=== PATIENT | female | born 1955 | race Caucasian/White ===

== ENCOUNTER 2023-08-23 12:25 | Emergency (ER) | payer MEDICARE ==
[2023-08-23 12:51] VITALS: TEMP 98.4
--- NOTE | 2023-08-23 12:52 | ERPHSYRPT ---
- History of Present Illness Time Seen by Provider: 08/23/23 12:37 Source: patient Exam Limitations: no limitations Physician History: Pt states she has had bilateral lower leg pain for the past 5 hours; denies chest pain, shortness of air, fever, headache, abdominal pain. Allergies/Adverse Reactions: Sulfa (Sulfonamide Antibiotics) Allergy (Verified 08/23/23 13:10) Home Medications: Earle/D3/Mag11/Zinc/Squeak [employer]r/Omid/Bor [Caltrate 600+D Plus Tablet] 1 tab PO DAILY 08/23/23 [History] Cefdinir 300 mg PO BID 08/23/23 [History] Doxycycline Hyclate 100 mg [Vibramycin 100 MG] 100 mg PO BID 08/23/23 [History] Gabapentin [Neurontin ] 300 mg PO TID PRN 08/23/23 [History] Multivit-Min/Iron/FA/Vit K/Lut [Centrum Women 50 Plus Minis Tb] 1 tab PO DAILY 08/23/23 [History] Tramadol HCl 50 mg [Ultram 50 mg] 25 mg PO Q8H PRN PRN 08/23/23 [History] - Review of Systems Constitutional: No Fever Respiratory: No Dyspnea Cardiac: No Chest Pain Abdominal/Gastrointestinal: No Abdominal Pain, No Vomiting, No Diarrhea Musculoskeletal: Other (bilateral lower leg pain for the past 5 hours) Neurological: No Headache - Nursing Vital Signs Nursing Vital Signs: Initial Vital Signs Pulse Rate 96 H 08/23/23 12:30 Respiratory Rate 19 08/23/23 12:30 Blood Pressure 126/69 08/23/23 12:30 Pain Scale Pain Intensity 4 - Physical Exam General Appearance: alert Eyes, Ears, Nose, Throat Exam: pharynx normal, moist mucous membranes Neck Exam: normal inspection Cardiovascular/Respiratory Exam: normal breath sounds, heart sounds normal Gastrointestinal/Abdominal Exam: soft (B.S. normal) Legs Exam: bilateral leg: soft tissue tenderness (posteriorly), swelling (left > right) Ankle Exam: bilateral ankle: normal range of motion Foot Exam: bilateral foot: normal range of motion Mental Status Exam: alert, cooperative Skin Exam: other (multiple scabbed lesions on lower legs with rash on arms and legs) SpO2 Interpretation: normal SpO2: 97 O2 Delivery: Room Air - Radiology Ultrasound Exam Other Ultrasound: Other (Tech report: bilateral ultrasound of lower extremities: No right or left DVT seen.) Ordered Tests: Active Orders 24 hr Category Date Time Status IV Insertion STAT Care 08/23/23 12:54 Active VENOUS BILATERAL EXTREMITY [US] Stat Exams 08/23/23 12:53 Taken BMP Stat Lab 08/23/23 12:35 Completed CBC W DIFF Stat Lab 08/23/23 12:35 Completed Medication Summary Discontinued Medications Generic Name Dose Route Start Last Admin Trade Name Chandan PRN Reason Stop Dose Admin Acetaminophen 1,000 mg in 100 mls @ 400 mls/hr 08/23/23 13:14 08/23/23 13:18 Ofirmev IV 08/23/23 13:28 400 mls/hr 1HRPRIOR ONE Administration Ketorolac Tromethamine 30 mg 08/23/23 16:31 08/23/23 16:37 Ketorolac Tromethamine 30 Mg/Ml Inj IV 08/23/23 16:32 30 mg STAT ONE Administration Ketorolac Tromethamine Confirm 08/23/23 16:35 Ketorolac Tromethamine 30 Mg/Ml Inj Administered 08/23/23 16:36 Dose 30 mg .ROUTE .STK-MED ONE Lab/Rad Data: Laboratory Result Diagrams 08/23/23 12:35 08/23/23 12:35 Laboratory Results 08/23/23 08/23/23 Range/Units 12:35 12:35 WBC 8.7 (4.0-10.5) x10^3/uL RBC 3.78 L (4.1-5.4) x10^6/uL Hgb 11.4 L (12.0-16.0) g/dL Hct 34.6 L (35-47) % MCV 91.5 (78-100) fL MCH 30.2 (26-32) pg MCHC 32.9 (32-36) g/dL RDW 11.8 (11.5-14.0) % Plt Count 304 (150-450) x10^3/uL MPV 9.9 (7.5-11.0) fL Gran % 83.3 H (36.0-66.0) % Immature Gran % (Auto) 0.5 H (0.00-0.4) % Nucleat RBC Rel Count 0.0 (0.00-0.1) % Eos # (Auto) 0.06 (0-0.5) x10^3/uL Immature Gran # (Auto) 0.04 H (0.00-0.03) x10^3u/L Absolute Lymphs (auto) 0.63 L (1.0-4.6) x10^3/uL Absolute Monos (auto) 0.68 (0.0-1.3) x10^3/uL Absolute Nucleated RBC 0.00 (0.00-0.01) x10^3u/L Lymphocytes % 7.2 L (24.0-44.0) % Monocytes % 7.8 (0.0-12.0) % Eosinophils % 0.7 (0.00-5.0) % Basophils % 0.5 (0.0-0.4) % Absolute Granulocytes 7.25 H (1.4-6.9) x10^3/uL Basophils # 0.04 (0-0.4) x10^3/uL Sodium 137 (135-145) mmol/L Potassium 4.1 (3.5-5.1) mmol/L Chloride 103 (98-107) mmol/L Carbon Dioxide 23 (22-30) mmol/L Anion Gap 14.3 (5-15) MEQ/L BUN 15 (7-17) mg/dL Creatinine 0.81 (0.52-1.04) mg/dL Estimated GFR 79.5 ML/MIN Glucose 119 H (74-106) mg/dL Calcium 9.6 (8.4-10.2) mg/dL - Progress Progress: unchanged Will see patient in: other (Spoke with & discussed pt with Dr. Kelly(covering for Dr. 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 Return to ER if needed.
[2023-08-23 13:00] LABS: Absolute Neutrophil Ct (ANC) 7.25 x10^3/uL (1.4-6.9); BASOPHIL % 0.5 % (0.0-0.4); Basophil (Absolute #) 0.04 x10^3/uL (0-0.4); Eosinophil % 0.7 % (0.00-5.0); Eosinophil (Absolute #) 0.06 x10^3/uL (0-0.5); Hematocrit 34.6 % (35-47); Hemoglobin 11.4 g/dL (12.0-16.0); IMMATURE GRAN # 0.04 x10^3u/L (0.00-0.03); IMMATURE GRAN % 0.5 % (0.00-0.4); Lymphocyte (Absolute #) 0.63 x10^3/uL (1.0-4.6); Lymphocytes % 7.2 % (24.0-44.0); Mean Cell Volume 91.5 fL (78-100); Mean Corpuscular Hemoglobin 30.2 pg (26-32); Mean Corpuscular Hgb Concent. 32.9 g/dL (32-36); Mean Platelet Volume 9.9 fL (7.5-11.0); Monocyte (Absolute #) 0.68 x10^3/uL (0.0-1.3); Monocytes % 7.8 % (0.0-12.0); Neutrophil % 83.3 % (36.0-66.0); Platelet Count 304 x10^3/uL (150-450); Red Blood Count 3.78 x10^6/uL (4.1-5.4); Red Cell Distribution Width 11.8 % (11.5-14.0); White Blood Count 8.7 x10^3/uL (4.0-10.5)
[2023-08-23 13:13] LABS: ANION GAP 14.3 MEQ/L (5-15); Calcium 9.6 mg/dL (8.4-10.2); Creatinine 1 0.81 mg/dL (0.52-1.04); EST GLOMERULAR FILTRATION RATE 79.5 ML/MIN; Potassium 4.1 mmol/L (3.5-5.1)
[2023-08-23] MEDS: OFIRMEV 1,000 MG/100 ML ML IV ONE (13:18)
[2023-08-23] MEDS ORDERED: TORAdol 30 mg Injection ONE (16:35)
[2023-08-23] MEDS: TORAdol 30 mg Injection IV ONE (16:37)
[2023-08-23 16:41] VITALS: PULSE 72
[2023-08-23 17:02] VITALS: O2SAT 97
[2023-08-23 17:24] VITALS: BP 124/67; RESP 24
--- NOTE | 2023-08-23 19:27 | XRAY ---
Indication: Bilateral pain. DVT. Two-dimensional sonogram and color Doppler imaging major venous vessels left and right leg performed. Comparison: None No thrombus seen in the examined deep venous vessels left and right leg including greater saphenous vein. Veins demonstrate normal compressibility. Venous waveforms are normal with and without augmentation. Impression: Left and right legs negative for DVT. Comment: Preliminary report was given.
== END 2023-08-23 17:46 | disposition home or self-care (01) ==
LOC: ED 12:25
DX: M79.661 Pain in right lower leg (principal); M79.662 Pain in left lower leg; C44.729 Squamous cell carcinoma of skin of left lower limb, including hip; C44.722 Squamous cell carcinoma of skin of right lower limb, including hip; Z79.891 Long term (current) use of opiate analgesic; Z79.899 Other long term (current) drug therapy
CPT/HCPCS: 36000; 36415; 80048; 85025; 93970; 96374; 99284; J1885